=== PATIENT | male | born 1955 | race Caucasian/White ===

== ENCOUNTER → 2024-07-03 | Outpatient (CLI) | payer MEDICARE, BC | END | disposition home or self-care (01) | LOC: LABPRL 06:25 | PROVIDERS: ATTEND Family Medicine | DX: I10 Essential (primary) hypertension (principal); E11.9 Type 2 diabetes mellitus without complications | CPT/HCPCS: 82746 ==

== ENCOUNTER → 2024-09-03 | Outpatient (CLI) | payer MEDICARE, BC ==
--- NOTE | 2024-09-03 11:22 | MR ---
EXAMINATION TYPE: MR brain wo con DATE OF EXAM: 09/03/2024 COMPARISON: NONE HISTORY: Memory loss TECHNIQUE: T1-weighted sagittal, T2, FLAIR, and diffusion axial, and T2 coronal coronal views of the brain are submitted. FINDINGS: There is no evidence of acute ischemia. Moderate to severe ventricular dilation. No slightly greater than the peripheral sulci overlying the convexities. Diffuse and focal areas of abnormal signal in th e white matter most typical remote microvascular ischemia. Mild changes of chronic sinusitis with slight nasal septal deviation. Orbits are symmetric. A small a babita of focal nodular low signal on T2 sequences to small to characterize within the lateral ventricle . May represent an area of calcification. Consider short-term follow-up scan in ventricular nodule. N o prior CT scan available for comparison. There is no mass effect. Tiny focal areas of abnormal signal involving the shaheen likely in the basis of tiny remote infarct. Craniocervical junction maintained. Sella turcica has a normal appearance. No cerebellopontine angle mass. IMPRESSION: 1. Moderate to severe degenerative change with a slightly greater central component. Therefore, a com ponent of normal pressure hydrocephalus or hydrocephalus in the differential diagnosis. 2. There is a small nodular area of abnormal signal within the lateral margin of the left lateral peewee tricle measuring 4 mm too small to characterize. Would recommend a short-term follow-up CT scan to [place] if this is an area calcification or a tiny subependymal nodule. [facility], , 09/03/2024 11:20 AM
== END | disposition home or self-care (01) ==
LOC: RADMRIMAIN 10:03
PROVIDERS: ATTEND Psychiatry & Neurology Neurology
DX: G31.9 Degenerative disease of nervous system, unspecified (principal); R41.3 Other amnesia; R47.89 Other speech disturbances; R47.01 Aphasia
CPT/HCPCS: 70551